=== PATIENT | female | born 1940 | race Caucasian/White ===

== ENCOUNTER 2016-03-09 06:00 | Inpatient (IN) | payer MEDICARE ==
[~2016-03-09 06:00] MED LIST: Buffered Lidocaine 1% SYR 3ML* 3 ML/SYR SYRINGE INTRADERM ONE
[2016-03-09] MEDS ORDERED: Buffered Lidocaine 1% SYR 3ML* 3 ML/SYR SYRINGE ONE (06:15)
[2016-03-09] MEDS ORDERED: Lidocain 1% EPI 1:100,000 * 30 ML MDV ONE (07:02)
[2016-03-09] MEDS ORDERED: Thrombin 5,000 UNITS* 1 APPLIC KIT - topical use - TOPICAL ONE (07:02)
[2016-03-09] MEDS ORDERED: Bacitracin IV* 50,000 UNITS INJ ONE ×2 (07:02→07:39)
[2016-03-09] MEDS ORDERED: fentaNYL* 50 MCG/ML 2 ML VIAL (100 MCG VIAL) ONE ×3 (07:44→10:16)
[2016-03-09] MEDS ORDERED: Midazolam* 1 MG/ML 2 ML VIAL (2 MG) ONE (07:44)
[2016-03-09] MEDS ORDERED: Clindamycin 900 MG IVPREMIX(* 900 MG/50 ML SDV IV ONE (07:48)
[2016-03-09] MEDS ORDERED: Propofol* 10 MG/ML 20 ML BTL IV PUSH ONE (07:57)
[2016-03-09] MEDS ORDERED: Lidocaine 2% MPF* 2 ML VIAL ONE (07:57)
[2016-03-09] MEDS ORDERED: Rocuronium* 10 MG/ML VIAL ONE (07:57)
[2016-03-09] MEDS ORDERED: Dexamethasone IV* 4 MG/ML 1 ML (4 MG) ONE (08:17)
[2016-03-09] MEDS ORDERED: Ondansetron INJ* 2 MG/ML VIAL ONE (08:17)
[2016-03-09] MEDS ORDERED: Famotidine IV* 10 MG/ML 2 ML (20 mg) ONE (08:17)
[2016-03-09] MEDS ORDERED: Acetaminophen TAB* 325 MG PO PRN ×2 (08:48→09:47)
[2016-03-09] MEDS ORDERED: HYDROcodone/ACETAMIN 5-325 MG* 1 TAB PO PRN (08:48)
[2016-03-09] MEDS ORDERED: PROCHLORPERAZINE INJ 5 MG/ML 2 ML VIAL IV PRN (08:48)
[2016-03-09] MEDS ORDERED: DiMENhydriNATE IV* 50 MG/ML VIAL IV PUSH PRN (08:48)
[2016-03-09] MEDS ORDERED: Ondansetron INJ* 2 MG/ML VIAL IV PRN ×2 (08:48→09:47)
[2016-03-09] MEDS ORDERED: Magnesium Hydroxide LIQ* 30 ML UDC PO PRN (09:47)
[2016-03-09] MEDS: fentaNYL* 50 MCG/ML 2 ML VIAL (100 MCG VIAL) IV PRN ×4 (10:17→10:39)
[2016-03-09] MEDS ORDERED: HYDROcodone/ACETAMIN 5-325 MG* 1 TAB ONE (10:27)
--- NOTE | 2016-03-09 11:39 | RAD ---
INDICATION: ] Decompressive laminectomy L4-L5. COMPARISON: Comparison is made with a prior MRI of the lumbar spine from February 03, 2016. TECHNIQUE: 2 cross table lateral portable films of the lumbar spine were obtained in the operating room. FINDINGS: There are several surgical instruments which project over the lower lumbar spine. IMPRESSION: INTRAOPERATIVE CONTROL FILMS.
[2016-03-09] MEDS: HYDROcodone/ACETAMIN 5-325 MG* 1 TAB PO PRN ×2 (13:53→21:11)
--- NOTE | 2016-03-10 07:36 | PN ---
Progress Note - Progress Note SOAP: Subjective: []POD # 1 Doing well Complains of incisional pain Pre op leg pain relieved Objective: []Significant drain output Neuro normal Has ambulated,voided Assessment: []Satis post op course Plan: []Will need to observe for drain output Continue to increase activity
[2016-03-10] MEDS: Atorvastatin* 10 MG TAB PO SCH (08:44)
[2016-03-10] MEDS ORDERED: SPIRIVA INH ONE (09:00)
[2016-03-10] MEDS: TIOTROPIUM INH SCH (09:00)
[2016-03-10] MEDS: HYDROcodone/ACETAMIN 5-325 MG* 1 TAB PO PRN ×3 (12:08→22:14)
[2016-03-11] MEDS: HYDROcodone/ACETAMIN 5-325 MG* 1 TAB PO PRN (07:07)
--- NOTE | 2016-03-11 07:55 | PN ---
Progress Note - Progress Note SOAP: Subjective: [This is a 75 year old female s/p decompressive lumbar laminectomy and synovial cyst removal L4-5, POD# 2. She is feeling well this morning, complains only of low back soreness. Pain is well controlled with oral pain medications. PRe- operative lower extremity pain is resolved. She is ambulating independently. She is eating, drinking and voiding without difficulty. She denies numbness, tingling, weakness and pain in the bilateral lower extremities. No headache. ] Objective: [ Vital Signs: Temp Pulse Resp BP Pulse Ox 99.9 F 80 18 112/60 90 03/11/16 03:35 03/11/16 03:35 03/11/16 07:09 03/11/16 03:35 03/11/16 03:35 General: Alert and oriented. No distress. Neuro: Motor and sensory intact. Incision: Intact with james. Nontender. No signs of infection. TARA removed today without complication. Extremities: Full ROM. TARA Drain Output 03/09/16 03/09/16 03/09/16 10:45 14:19 18:43 Output, TARA #1 15 90 75 03/09/16 03/10/16 03/10/16 22:00 02:03 06:00 Output, TARA #1 10 15 40 03/10/16 03/10/16 03/10/16 10:00 14:00 18:00 Output, TARA #1 15 15 5 03/10/16 03/10/16 03/11/16 22:00 22:46 02:01 Output, TARA #1 5 0 20 03/11/16 05:54 Output, TARA #1 5 ] Assessment: [This patient is following a satisfactory post-operative course. Pain is well controlled. ] Plan: [1. Discharge home today. 2. Discharge instructions including wound care and activity level were discussed with the patient. ]
[2016-03-11 08:00] VITALS: BP 138/73
[2016-03-11] MEDS: TIOTROPIUM INH SCH (08:21)
[2016-03-11] MEDS: Atorvastatin* 10 MG TAB PO SCH (08:33)
--- NOTE | 2016-03-11 10:15 | DS ---
DISCHARGE SUMMARY: DATE OF ADMISSION: 03/09/16. DATE OF DISCHARGE: 03/11/16. ATTENDING SURGEON: Ryan Leger MD (dictated by DYANA Harding) DISCHARGE DIAGNOSES: 1. Lumbar spinal stenosis. 2. Synovial cyst of the lumbar facet joint. SPECIAL PROCEDURE: Decompressive lumbar laminectomy, and removal of synovial cyst at L4-L5. HOSPITAL COURSE: This 75-year-old female was seen in the office with signs and symptoms of lumbar radiculopathy. She failed to improve with conservative treatment and was admitted at this time for elective surgical intervention. On the day of admission, she was taken to surgery where, under general anesthesia, a decompressive lumbar laminectomy at L4-L5 and removal of synovial cyst at L4- L5 on the right operation was carried out. Postoperatively, she was feeling well. She was ambulating independently. She was eating, drinking and voiding without difficulty. Pain was well controlled with oral pain medications. On the second postoperative day, she was discharged home to the care of her family. DISCHARGE INSTRUCTIONS: Discharge instructions including wound care and activity level were discussed with the patient and provided. She will be seen in the office in approximately 7-10 days for followup and staple removal. DISCHARGE MEDICATIONS: [place] 5/325 mg two tabs by mouth every 4 hours as needed for pain. DYANA HARDING [id number]/[facility] #: [id number] MTDD
--- NOTE | 2016-03-16 01:35 | OP ---
DATE OF OPERATION: 03/09/16 - ROOM #334 DATE OF : 42 SURGEON: Ryan Leger MD ANESTHESIOLOGIST: Dr. Bernardo ANESTHESIA: General. PRE-OP DIAGNOSES: Lumbar spinal stenosis at L4-5, lumbar synovial cyst L4-5 on the right. POST-OP DIAGNOSES: Lumbar spinal stenosis at L4-5, lumbar synovial cyst L4-5 on the right. OPERATIVE PROCEDURE: Decompressive lumbar laminectomy L4-5, excision synovial cyst L4-5 on the right with microdissection. DESCRIPTION OF PROCEDURE: After satisfactory general anesthesia was obtained, the patient was placed on the operating table in the prone position with the chest supported on the Abner frame and the back slightly flexed. The lumbar region was then clipped, prepped, and draped in a sterile manner for lumbar laminectomy and a skin incision outlined from L4-L5. This incision was infiltrated with 1% Xylocaine with epinephrine, after which it was turned down sharply to the level of the lumbar fascia. The fascia was divided along the spinous processes of L4 and L5, and the paraspinal musculature stripped away from these posterior elements using the periosteal elevator and monopolar cautery. An intraoperative x-ray was attempted, but could not be accomplished secondary to the patient's body habitus. The correct level was identified by palpating the sacrum and moving up to the L4-5 level. The initial step in the decompression was removing the spinous processes of L4 and L5, which was done with a Leksell rongeur. Decompression was then carried out by removing the inferior aspect of the L4 lamina and medial aspect of the facet complex with a combination of Midas Gene drill and Kerrison rongeurs. This was carried superiorly until the attachment of the ligamentum flavum was taken down. The ligamentum flavum was then removed with the Kerrison initially on the left side , where a generous foraminotomy was carried out over the L5 nerve root. On the right side, the dura was noted to be compressed by a synovial cyst extending from the facet joint on the right side. At this point of procedure, the operating microscope was brought into the field and the remainder of the procedure was done under microscopic visualization. Utilizing micro-dissection , a plane was developed between the cyst wall and the dura. This enabled decompression of the medial aspect of the facet and cyst complex with Kerrison rongeurs. Ultimately, this was carried inferiorly until the L5 nerve root was also free on the right side. Following the decompression, both nerve roots were noted to be free in their course. The disk was flat. After assuring adequate hemostasis, wound was thoroughly irrigated, after which a drain was placed in the epidural space and tunneled out toward the right side. The fascia was then reapproximated with 0 Vicryl suture. The subcutaneous tissues were closed with 3-0 Vicryl suture and the skin closed with skin clips. The estimated blood loss was less than 50 cc and the final sponge, padding, and needle counts were correct. The patient was taken to the recovery room, extubated, and in stable condition. [id number]/[facility] #: [id number] [facility]
== END 2016-03-11 08:50 | disposition home or self-care (01) | DRG 519 ==
LOC: OR 06:00 → SSU 09:47 → OBSVTOIN 03-10 07:36
PROVIDERS: ADMIT Neurological Surgery; ATTEND Neurological Surgery
PROC: 01NB0ZZ Release Lumbar Nerve, Open Approach (ICD-10-PCS; 2016-03-09)
PROC: 0SB00ZZ Excision of Lumbar Vertebral Joint, Open Approach (ICD-10-PCS; principal; 2016-03-09 07:45)
DX: M48.06 Spinal stenosis, lumbar region (principal); Z68.41 Body mass index [BMI] 40.0-44.9, adult; M54.16 Radiculopathy, lumbar region; E66.01 Morbid (severe) obesity due to excess calories; M79.7 Fibromyalgia; M54.31 Sciatica, right side; M71.38 Other bursal cyst, other site; Z88.0 Allergy status to penicillin; Z88.6 Allergy status to analgesic agent; Z88.1 Allergy status to other antibiotic agents; Z88.2 Allergy status to sulfonamides; Z88.8 Allergy status to other drugs, medicaments and biological substances; Z87.891 Personal history of nicotine dependence
CPT/HCPCS: 72100; 94640; A9270-GY; J1100; J2250; J2405; J2704; J3010

== ENCOUNTER 2017-06-26 12:19 | Emergency (ER) | payer MEDICARE ==
--- NOTE | 2017-06-26 13:12 | UC ---
Respiratory Complaint HPI - HPI Summary HPI Summary: Pt with h/o COPD - no O2, steroids - pt on spirivaan albuterol MDI pt recent return from cruise since Tue progressive sob and cough. Pt has used Albuterol x 2 with short term relief. No fever, chills, rash cough not productive no n/v/d. N No cp, abd pain Pt's medications reviewed this visit - History of Current Complaint Stated Complaint: COUGH,CHILLS Time Seen by Provider: 06/26/17 13:12 Hx Obtained From: Patient Onset/Duration: Gradual Onset Timing: Constant Severity Initially: Mild Severity Currently: Mild - Allergies/Home Medications Allergies/Adverse Reactions: Allergies Allergy/AdvReac Type Severity Reaction Status Date / Time Adhesive Tape Allergy WELTS Verified 03/09/16 06:26 aspirin Allergy Anaphylatic Verified 06/26/17 13:21 Shock azithromycin Allergy Hives Verified 06/26/17 13:21 latex Allergy Rash Verified 06/26/17 13:21 Penicillins Allergy Rash Verified 06/26/17 13:21 Sulfa (Sulfonamide Allergy Hives Verified 06/26/17 13:21 Antibiotics) ZOMAX Allergy ANAPHYLACTI Uncoded 03/09/16 06:26 C Home Medications: Home Medications Albuterol HFA INHALER* [Ventolin HFA Inhaler*] 2 puff INH Q4H 06/26/17 [History Confirmed 06/26/17] Melatonin 3 mg PO DAILY 06/26/17 [History Confirmed 06/26/17] PMH/Surg Hx/FS Hx/Imm Hx Previously Healthy: Yes Cardiovascular History: Hypertension Respiratory History: COPD - Surgical History Surgical History: Yes Surgery Procedure, Year, and Place: Hysterectomy 1981 [facility] ; (Decorveins Right Thumb) Right Thumb Surgery 1977 [facility]; Right Wrist Surgery 1968 at [facility]; Bilateral Knee Replacement (2005 and 2011) at [facility]; Tonsillectomy 1947 at [facility]. TUBAL LIGATION 1971 [facility]-HYSTERECTOMY 1981 [facility] -BENIGN CYSTS REMOVED FROM RIGHT BREAST LATE TRAVIS ROBLES-BILATERAL CATARACTS - Family History Known Family History: Negative: Hypertension, Diabetes - Social History Occupation: Retired Lives: With Family Alcohol Use: Rare Substance Use Type: None Smoking Status (MU): Former Smoker Type: Cigarettes Amount Used/How Often: 1 1/2- 2 PPD X 47 YEARS Have You Smoked in the Last Year: No When Did the Patient Quit Smoking/Using Tobacco: 2006 Review of Systems Constitutional: Fatigue Skin: Negative Eyes: Negative ENT: Negative Respiratory: Cough Cardiovascular: Negative All Other Systems Reviewed And Are Negative: Yes Physical Exam Triage Information Reviewed: Yes Appearance: Well-Appearing, No Pain Distress, Well-Nourished Vital Signs Reviewed: Yes Eye Exam: Normal Eyes: Positive: Conjunctiva Clear ENT Exam: Normal ENT: Positive: Pharynx normal, TMs normal Dental Exam: Normal Neck exam: Normal Neck: Positive: Supple, Nontender Respiratory: Positive: Other: - coarse cough + scattered wheeze + rhonci left base no accessory muscle Cardiovascular Exam: Normal Cardiovascular: Positive: RRR, No Murmur Abdominal Exam: Normal Bowel Sounds: Positive: Present Musculoskeletal Exam: Normal Neurological Exam: Normal Psychological Exam: Normal Skin Exam: Normal UC Diagnostic Evaluation - Radiology Xray Interpretation: Positive (See Comments) - LLL PNA Radiology Interpretation Completed By: Radiologist Re-Evaluation - Re-Evaluation First Eval Change: Improved - Pt with LLL pna pt states feels markedly improved wheezing resolved will give doxy pt has albuterol -will give spacer hydrate secretion precaution return precaution pt with elevated bp - pt with h/o htn Pt to f/u with PCP this week retrn precuations discussed pt in agreement with plan Respiratory Course/Dx - Course Course Of Treatment: pt wtih copd presents with persistent cough x 2 days. pt with rhonci left base and wheeze. will give neb. check cxr and reassess - Differential Dx/Diagnosis Provider Diagnoses: LLL PNA Discharge - Sign-Out/Discharge Documenting (check all that apply): Discharge/Admit/Transfer - Discharge Plan Condition: Stable Disposition: HOME Prescriptions: DOXYcycline CAP(*) [DOXYcycline 100MG CAP(*)] 100 mg PO BID #20 cap Patient Education Materials: Community Acquired Pneumonia (ED) Referrals: Ioana Moreland MD [Primary Care Provider] - Additional Instructions: -Take antibiotics exactly as prescribed until gone -Use your albuterol puffer - 2 puffs ever 4-6 hours for the next 3 days - then as needed -Stay well hydrated - avoid excess caffeine and all alcohol - eat regular, healthy meals - take antibiotics as prescribed until gone -These infections are spread by oral secretions. Do not share eating or drinking utensils. Frequent hand washing is important. Clean items that may get your secretions on them such as cell phones, ipads, computer mouse, television remotes. Once you have been on antbiotics for 2 days, change your pillowcase and your toothbrush -Contact your doctor tomorrow to arrange a follow-up appointment this week. Call your doctor, return here or go to the emergency department with any questions or concerns - Billing Disposition and Condition Condition: STABLE Disposition: HOME
[2017-06-26 13:19] VITALS: BP 149/76
[2017-06-26] MEDS ORDERED: Albuterol/Ipratropium NEB.SOL* Albuterol 2.5 MG/Ipratropium 0.5 MG 3 ML INH ONE (14:12)
--- NOTE | 2017-06-26 14:47 | RAD ---
Indication: Cough. 2 views of the chest including dual energy PA views are reviewed. Heart is of normal size and configuration. There is suggestion of left basilar airspace disease consistent with left lower lobe pneumonia. Right lung field is clear. IMPRESSION: Findings consistent with left lower lobe pneumonia.
== END 2017-06-26 15:18 | disposition home or self-care (01) ==
LOC: UCCORT 12:19
DX: J18.9 Pneumonia, unspecified organism (principal); Z88.6 Allergy status to analgesic agent; Z88.1 Allergy status to other antibiotic agents; Z91.040 Latex allergy status; Z88.2 Allergy status to sulfonamides; Z91.048 Other nonmedicinal substance allergy status; I10 Essential (primary) hypertension; J44.9 Chronic obstructive pulmonary disease, unspecified; Z87.891 Personal history of nicotine dependence
CPT/HCPCS: 71046; 99212; A9270-GY; G0463